=== PATIENT | male | born 1935 | race Caucasian/White ===

== ENCOUNTER 2017-06-15 05:57 | Day surgery (SDC) | payer OTHER, BC ==
[2017-06-09 09:54] VITALS: BMI 24.3
[2017-06-15] MEDS ORDERED: ACETAMINOPHEN 325 MG TABLET (FP) PO PRN (10:29)
[2017-06-15] MEDS ORDERED: ONDANSETRON 4 MG/2 ML VIAL IVPUSH PRN (10:29)
[2017-06-15] MEDS ORDERED: LACTATED RINGERS SOLUTION 1,000 ML IV SCH ×2 (10:30→13:30)
[2017-06-15] MEDS ORDERED: ceFAZolin SODIUM 1 GM VIAL IVPB ONE (10:50)
[2017-06-15] MEDS ORDERED: LIDOCAINE 1%/EPI 1:100000 (20 ML MULTI DOSE VIAL) IJ ONE (10:53)
[2017-06-15] MEDS ORDERED: BUPIVACAINE HCL/PF 0.5% (5MG/ML) 10 ML VIAL IJ ONE (10:53)
[2017-06-15 11:46] VITALS: TEMP 98.3
[2017-06-15 12:48] VITALS: BP 112/54; PULSE 63
--- NOTE | 2017-06-15 23:40 | OP ---
DATE OF OPERATION: 06/15/2017 SURGICAL ATTENDING: Joy Grimm M.D. 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 ANESTHESIA: Local with sedation. PROCEDURE: Re-excision of left forearm skin cancer. DESCRIPTION OF PROCEDURE: Patient was taken into the operating room, placed in the supine position. An IV was started. He was given IV sedation and antibiotics. The left arm was prepped and draped in the usual sterile fashion. Local anesthesia was injected. The previous suture line was identified and the stitch removed. A 1-cm margin around the previous suture line was demarcated and 15 blade was used to excise the skin and subcutaneous tissues down to the muscle layer. This block of skin was removed. Sutures were placed for orientation and was sent to pathology. Hemostasis was achieved with electrocautery. The skin flaps were raised to accommodate closure. It was then closed in 2 layers with Vicryl and nylon sutures. Sterile dressings were placed. Patient was then awakened and taken to recovery in stable condition. Dr. Grimm, attending surgeon, was present throughout the entire procedure. JOY GRIMM M.D. [id number]
--- NOTE | 2017-06-16 13:32 | PATH ---
Surgical Pathology Report Patient Name: MARIN WALLER [facility]. Rec. #: [id number] /Age/Gender: 1935 (Age: 82) / M Account: [id number] Location: [facility] SURGICAL Taken: 06/15/2017 Received: 06/15/2017 Reported: 06/16/2017 Physicians: Scott Caraballo M.D. 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 NO RESIDUAL CARCINOMA IDENTIFIED. EXTENSIVE SOLAR ELASTOSIS PRESENT. Electronically Signed Yrn Syed M.D. Gross Description Received in formalin labeled "left upper arm skin lesion reexcision," is a 4.0 x 1.7 cm munoz, elliptical portion of skin excised to a depth of 1.0 cm. There is a short suture marking the proximal tip and a long suture marking the lateral aspect of the specimen, per the surgeon. The epidermal surface displays a central, linear, healed scar. The lateral side is inked blue, the medial side is inked green and the lateral tip is differentially inked red. The specimen is serially sectioned from proximal to distal. The specimen is entirely and sequentially submitted in 9 cassettes with the proximal tip in cassette 1 and the distal tip in cassette 9. /06/15/2017 saudi06/15/2017
== END 2017-06-15 13:41 | disposition home or self-care (01) ==
LOC: JASU-SURG 05:57
PROVIDERS: ATTEND Surgery
PROC: 0JBH0ZZ Excision of Left Lower Arm Subcutaneous Tissue and Fascia, Open Approach (ICD-10-PCS; principal; 2017-06-15 10:00)
DX: D23.62 Other benign neoplasm of skin of left upper limb, including shoulder (principal)
CPT/HCPCS: 88305-TC; 94760